=== PATIENT | male | born 1965 | race Caucasian/White ===

== ENCOUNTER 2019-03-28 10:17 | Outpatient (CLI) | payer SELFPAY ==
--- NOTE | 2019-03-28 11:39 | Diagnostic Imaging Report ---
DANIEL GARDNER [facility] [address] [facility] [address] [address] Report Submission Date: Mar 28, 2019 11:29:04 AM CDT Patient Study Name: RALPH MOCTEZUMA Date: Mar 28, 2019 10:25:04 AM CDT Modality Type: DX Gender: M Description: FOOT 3 VIEWS OR MORE : 67 Institution: [facility] Physician: DANIEL GARDNER Exam: Right foot. History: Heel pain AP, lateral and oblique view of the right foot are submitted. An area of sclerosis through the terminal tuft of the 1st distal phalanx may indicate old injury. No acute fractures or dislocations are identified. 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 Spur off the plantar surface of the calcaneus is noted. No other soft tissue abnormality is identified. Impression: No acute fracture. 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 Heel spur. Electronically signed on Mar 28, 2019 11:29:04 AM CDT by: Kyle LEE
== END 2019-03-28 10:19 ==
LOC: RAD 10:17
PROVIDERS: ATTEND Family Medicine
DX: M25.571 Pain in right ankle and joints of right foot (principal); M19.079 Primary osteoarthritis, unspecified ankle and foot
CPT/HCPCS: 73630